=== PATIENT | male | born 1980 | race Caucasian/White ===

== ENCOUNTER → 2024-10-22 14:15 | Outpatient (REF) | payer BC, SELFPAY | LOC: RAD 14:15 | PROVIDERS: ATTENDING PHYSICIAN Family Medicine | DX: R07.9 Chest pain, unspecified (principal) | CPT/HCPCS: 71046 ==

== ENCOUNTER 2024-11-28 06:25 | Day surgery (SDC) | payer OTHER, SELFPAY | END 2024-11-28 09:33 | LOC: GI 06:25 | PROVIDERS: ATTENDING PHYSICIAN Internal Medicine Gastroenterology | DX: K62.5 Hemorrhage of anus and rectum (principal); R19.4 Change in bowel habit; K57.30 Diverticulosis of large intestine without perforation or abscess without bleeding; K64.8 Other hemorrhoids | CPT/HCPCS: 45380; 88305 ==

== ENCOUNTER 2025-09-10 11:54 | Emergency (ER) | payer OTHER, SELFPAY ==
[2025-09-10 12:02] VITALS: BP 124/73
--- NOTE | 2025-09-10 15:11 | ED.GENMED ---
History of Present Illness
General
Chief Complaint: Anal/Rectal Problem
Source: patient
Exam Limitations: none
Time Seen by Provider: 09/10/25 14:38
History of Present Illness
History of Present Illness:
45-year-old male presents with progressively worsening pain and swelling to the perianal area. He denies any drainage. He denies fever at home. He was seen at the urgent care earlier today and said he had an abscess and sent here for further
evaluation. He states he is hesitant to have a bowel movement secondary to the pain. No vomiting. He is healthy otherwise. No other complaints at this time
Phy Exam
Physical Exam
Physical Exam:
General: Well-appearing male no acute respiratory distress
Skin: Left side perianal region fluctuant and indurated with tenderness no current drainage.
Course
Orders/Labs/Results
Orders:
Orders
09/10/25 15:10
Amoxicillin 875 mg/Clav 125 mg [Augmentin 875 mg/125 mg] 1 tablet PO NOW STA
Vital Signs
Initial and Last Documented VS:
Initial Vital Signs
Temp Pulse Resp BP Pulse Ox
97.8 F 98 16 124/73 100
09/10/25 12:02 09/10/25 12:02 09/10/25 12:02 09/10/25 12:02 09/10/25 12:02
Last Documented Vital Signs
Temp Pulse Resp BP Pulse Ox
97.8 F 98 16 124/73 100
09/10/25 12:02 09/10/25 12:02 09/10/25 12:02 09/10/25 12:02 09/10/25 12:02
MDM/Problems Addressed
Differential Diagnosis Includes:
Perianal abscess superficial and evident on exam. Discussion about treatment options were was had with the patient. We decided to incise and drain the abscess. The area was cleansed with Betadine and anesthetized with 1% lidocaine with
epinephrine. An 11 blade stab incision was made over the area of fluctuance and a large amount of purulent material was expressed from the wound. Loculations were broken up using blunt dissection with the end of the needle drivers suction was used
to clean out the wound. This was then irrigated with saline and suctioned again. Gauze was placed into the area to catch any further drainage. He was started on Augmentin. Stable for discharge
*Pulse Oximetry
SaO2: 100
Oxygen Mode of Delivery: Room air
Patient hypoxic: no
*Critical Care Note
Total Time (30-74mins, 75-104mins- exclusive of procedures): Not Applicable
ED Attending Note
-
Portions of this chart may have been created with voice recognition software.� Occasional wrong word or��sound alike� substitutions may have occurred due to the inherent limitations of voice recognition software.
Discharge Plan
Departure
Patient Disposition: Home (Routine Discharge)
Date of Disposition: 09/10/25
Time of Disposition: 15:17
Patient with high blood pressure during this ER visit?: No
Discharge Problem:
Abscess, perianal
Instructions: How to Do a Sitz Bath
Prescriptions:
New
amoxicillin-pot clavulanate 875-125 mg tablet
1 tab PO BID Qty: 14 0RF
No Action
Excedrin Migraine 250-250-65 mg Tablet
2 tab PO Q6H PRN (Reason: migraine)
ibuprofen 400 mg Tablet
400 mg PO Q6H PRN (Reason: pain)
acetaminophen [acetaminophen] 325 mg tablet
650 mg PO Q4HPRN PRN (Reason: mild pain) Qty: 1 0RF
oxycodone 5 mg tablet
5 mg PO Q4HPRN PRN (Reason: breakthrough/severe pain) Qty: 5 0RF
Activity Restrictions/Additional Instructions:
Keep clean with warm water. Take antibiotic as directed. Return here if worse otherwise follow-up with your doctor.
Interventions
Interventions:
*Risk Screen - Suicide Last Done: 09/10/25 12:02
*Neglect/Abuse Screening Last Done: 09/10/25 12:02
Discharge Date and Time
Print Language: MACEDONIAN
[2025-09-10] MEDS: AUGMENTIN 875 MG/125 MG 1 TABLET PO (15:48)
== END 2025-09-10 16:30 | disposition home or self-care (01) ==
LOC: EMR 11:54
PROVIDERS: EMERGENCY PHYSICIAN Emergency Medicine; FAMILY PHYSICIAN Family Medicine
DX: K61.0 Anal abscess (principal)
CPT/HCPCS: 99283; 46050